=== PATIENT | male | born 1970 | race Caucasian/White ===

== ENCOUNTER 2017-07-16 18:13 | Emergency (ER) | payer OTHER ==
[2017-07-16 18:52] LABS: #Basophils 0.1 thou/uL (0.0-0.2); #Eosinphils 0.2 thou/uL (0.0-0.7); #Monocytes 0.8 thou/uL (0.11-0.59); #Neutrophils 4.7 thou/uL (1.40-6.50); %Basophils 0.8 % (0.0-1.0); %Eosinophils 2.2 % (0.0-10.0); %Monocytes 9.5 % (0.0-10.0); %Neutrophils 53.6 % (42.0-75.0); Hemoglobin 14.8 g/dL (14.0-18.0); Mean Corpuscular HGB CONC 34.6 g/dL (32.0-36.0); Mean Corpuscular Hemoglobin 31.5 pg (27.0-31.0); Mean Corpuscular Volume 91.1 fl (80.0-94.0); Mean Platelet Volume 6.5 fL (7.4-10.4); Platelet Count 282 thou/uL (130-400); RBC Distribution Width 10.8 % (11.5-14.5); White Blood Cell (WBC) Count 8.8 thou/uL (4.8-10.8)
[2017-07-16] MEDS ORDERED: Ondansetron ODT 4 MG TAB ONE ×2 (18:52→23:55)
[2017-07-16] MEDS ORDERED: Morphine 4 MG/ML VIAL ONE ×2 (18:52→23:44)
[2017-07-16 19:10] LABS: Bilirubin Negative (Negative); Blood, Urine Large (Negative); Clarity CLEAR (Clear); Glucose, Urine (Dipstick) Negative (Negative); Leukocyte Negative (Negative); Nitrite Negative (Negative); Protein, Urine (Dipstick) Negative (Neg-Trace); Specific Gravity, Urine 1.023 (1.002-1.036); Urobilinogen 0.2 mg/dL (0.2-1.0); pH, Urine 5.5 (5.0-9.0)
[2017-07-16 19:12] LABS: Bacteria/HPF None Seen HPF (None Seen); Hyaline Casts/LPF 0-3 HYALINE CAST LPF (0-3 Hyaline); RBC/HPF GREATER THAN 50-TNTC HPF (0-3); Squamous Epithelial None Seen HPF (0-3); WBC/HPF 0-3 HPF (0-3)
[2017-07-16 19:14] LABS: ALT (SGPT) 11 U/L (8-55); AST (SGOT) 16 U/L (5-34); Albumin 4.3 g/dL (3.5-5.0); Alkaline Phosphatase 76 U/L (40-150); Anion Gap 12 mmol/L (10-20); BUN (Urea Nitrogen) 21 mg/dL (8.9-20.6); Calc. Creatinine Clearance 0 mL/min (70-130); Calcium 9.6 mg/dL (7.8-10.44); Carbon Dioxide 26 mmol/L (22-29); Chloride 105 mmol/L (98-107); Estimated GFR-MDRD 50; Globulin 2.9 g/dL (2.4-3.5); Glucose 130 mg/dL (70-105); Lipase 22 U/L (8-78); Potassium 3.9 mmol/L (3.5-5.1); Protein, Total 7.2 g/dL (6.0-8.3); Sodium 139 mmol/L (136-145)
--- NOTE | 2017-07-16 19:49 | CT ---
CT ABDOMEN AND PELVIS WITHOUT CONTRAST 07/16/17 HISTORY: Left sided flank and abdominal pain. FINDINGS: Absence or oral and IV contrast reduces sensitivity of the exam particularly for evaluation of solid organs and bowel. There are mild dependent changes in the lung bases. No free air or free fluid is seen in the abdomen or pelvis. No calcified gallstones are noted. A normal appearing appendix is seen. No calculi is seen in the kidneys, ureters or the urinary bladder. Multiple right sided renal cysts a re present. There is a 13 mm low density lesion in the left renal cortex which does not meet criteria for a simple cyst. There are vascular calcifications without evidence of aneurysmal dilatation of the abdominal aorta. T here is sigmoid diverticulosis without evidence of diverticulitis. There are small fat containing inguinal hernias, left larger than right. No acute osseous abnormaliti es are seen. IMPRESSION: 1. No CT evidence of urinary tract calculi or obstruction. 2. Right renal cyst. 3. Indeterminate 13 mm low density lesion in the left kidney. A dedicated renal ultrasound is re commended on a nonemergent basis. 4. Sigmoid diverticulosis. POS: [facility]
== END 2017-07-17 00:30 | disposition home or self-care (01) ==
LOC: ERS 18:13
DX: R10.9 Unspecified abdominal pain (principal); I10 Essential (primary) hypertension; K21.9 Gastro-esophageal reflux disease without esophagitis; F41.9 Anxiety disorder, unspecified; Z79.899 Other long term (current) drug therapy
CPT/HCPCS: 36415; 74176; 80053; 81003; 81015; 83690; 85025; 87086; 96374; 96376; J2270; Q0162